=== PATIENT | male | born 1940 | race Caucasian/White ===

== ENCOUNTER 2020-10-09 08:57 | Inpatient (IN) ==
--- NOTE | 2020-09-18 10:20 | PAT Medication Instructions ---
Medication Instructions Date of Service September 18, 2020 Home Medications amlodipine [Norvasc] 5 mg PO Q2D atenolol [Tenormin] 100 mg PO QAM clopidogrel [Plavix] 75 mg PO QAM hydrocodone-acetaminophen 1 tab PO QID PRN insulin glargine U-300 conc [Toujeo SoloStar U-300 Insulin] 50 unit SUBCUT QAM lisinopril-hydrochlorothiazide 1 tab PO QAM metformin 500 mg PO QAM multivitamin 1 cap PO QAM rosuvastatin [Crestor] 40 mg PO QAM tamsulosin [Flomax] 0.4 mg PO HS Continue as directed amlodipine [Norvasc] 5 mg PO Q2D ASK your prescriber and surgeon clopidogrel [Plavix] 75 mg PO QAM DO NOT take the morning of surgery lisinopril-hydrochlorothiazide 1 tab PO QAM metformin 500 mg PO QAM multivitamin 1 cap PO QAM Take morning of surgery With a small sip of water, OTHERWISE NOTHING TO EAT OR DRINK AFTER MIDNIGHT: atenolol [Tenormin] 100 mg PO QAM hydrocodone-acetaminophen 1 tab PO QID PRN (okay to take up to 4 hours prior to surgery if needed) rosuvastatin [Crestor] 40 mg PO QAM Take evening before surgery hydrocodone-acetaminophen 1 tab PO QID PRN (okay to take up to 4 hours prior to surgery if needed) tamsulosin [Flomax] 0.4 mg PO HS Insulin Dependent Diabetic Patients * Test your blood sugar the morning of surgery * If Blood Sugar is GREATER THAN 150, take HALF of your regular dose of: insulin glargine U-300 conc [Toujeo SoloStar U-300 Insulin] take 25 units * If Blood Sugar is LESS THAN 150, DO NOT TAKE ANY: insulin glargine U-300 conc [Toujeo SoloStar U-300 Insulin] Other Notes If you have any questions please call us at [phone] or [phone] or [phone] or [phone]
--- NOTE | 2020-09-18 10:24 | Anesthesiology Consultation ---
Date of Service September 18, 2020 Assessment & Plan (1) Encounter for pre-operative examination: - Awaiting surgeon-ordered PCP clearance + preop UA. - COVID screening: Per assessment on 09/18: Patient vaccinated. Travel screen ne [place], no known COVID-19 positive contacts or current COVID-19 related symptoms. Surgeon arranging preop COVID testing. Awaiting results. - Check BSG AM DOS - Plavix instructions per surgeon/prescriber Chart Review Chart Review: Patient seen in Pre Admission Testing Teaching & Discussion Pre-Anesthesia Teaching/Discussion Notes: Instructed NPO after midnight before surgery,except medications with 15 cc of water. Medication instructions provided according to the PAT guidelines. History Surgery Operation Date: 10/09/20 12:35 Proposed Procedures p Revision; L2=S1 Revision Decompression/Fusion Spinal Cord Monitoring - Yobani De Los Santos DO Height/Weight Height: 5 ft 10 in Weight: 102.512 kg (per verbal, pt unable to stand) Allergies Allergy/AdvReac Type Severity Reaction Status Date / Time cephalexin [From Keflex] Allergy Mild burning in Verified 09/17/20 13:29 hand Medications Home Medications Medication Instructions Recorded Confirmed Last Taken amlodipine [Norvasc] 5 mg PO Q2D 09/17/20 09/17/20 Unknown atenolol [Tenormin] 100 mg PO QAM 09/17/20 09/17/20 Unknown clopidogrel [Plavix] 75 mg PO QAM 09/17/20 09/17/20 Unknown hydrocodone-acetaminophen 1 tab PO QID PRN 09/17/20 09/17/20 Unknown insulin glargine U-300 conc 50 unit SUBCUT QA 09/17/20 09/17/20 Unknown [Toujeo SoloStar U-300 Insulin] lisinopril-hydrochlorothiazide 1 tab PO QAM 09/17/20 09/17/20 Unknown metformin 500 mg PO QAM 09/17/20 09/17/20 Unknown multivitamin 1 cap PO QAM 09/17/20 09/17/20 Unknown rosuvastatin [Crestor] 40 mg PO QAM 09/17/20 09/17/20 Unknown tamsulosin [Flomax] 0.4 mg PO HS 09/17/20 09/17/20 Unknown Past Medical History Medical History BPH (benign prostatic hyperplasia) Chronic back pain Diabetes mellitus, type 2 NIDDM GERD (gastroesophageal reflux disease) Hyperlipidemia Hypertension Obesity Osteoarthritis PAD (peripheral artery disease) PAD/PVD on Plavix Exercise / Class Metabolic Activity IV < 2 Limit ADL/Bedbound (for last few weeks in setting of worsening pain) Past Surgical History Surgical History 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 History of lumbar surgery No hardware per pt Hx of bilateral cataract extraction Hx of colonoscopy Hx of resection of large bowel r/t mass (benign) Past Anesthesia History No Hx of Anesthesia Complications and No Family Hx of Anesthesia Complications History of PONV No Hx of PONV and No Hx of Motion Sickness Social History Smoking Status: Current some day smoker tobacco type: cigars (occasional) Do You Dip or Chew Tobacco: No Hx Alcohol Use: No Hx Substance Use: No substance use type: does not use Review of Systems Patient denies chest pain, shortness of breath, dyspnea on exertion, fever, chills, cough, wheezing, palpitations. Physical Exam Vital Signs VITALS BP 112/60 P 67 TEMP 98.6 SP02 93%RA RESP 16 PHYSICAL Decreased cervical extension range of motion. Full TMJ range of motion. TMD 3.5 finger breaths Mallampati Score 3 Dentition: full dentures upper/lower Lungs: clear throughout to auscultation Cardiac: regular rate and rhythm, no murmurs noted Spine: normal Carotid arteries: negative bruit Extremities: no edema Lab Results Anesthesia Preop Results Results Anesthesia Widget: WBC 6.73 K/uL (4.8-10.8) 09/18/20 Hgb 12.5 g/dL (14.0-18.0) L 09/18/20 Hct 37.0 % (42-52) L 09/18/20 Plt 241 K/uL (130-400) 09/18/20 Na 142 mmol/L (136-145) 09/18/20 K 4.9 mmol/L (3.5-5.1) 09/18/20 Cl 109 mmol/L (98-107) H 09/18/20 CO2 29 mmol/L (21-32) 09/18/20 BUN 33 mg/dl (7-18) H 09/18/20 Creat 1.16 mg/dl (0.6-1.4) 09/18/20 Glucose Level 149 mg/dl (70-99) H 09/18/20 PT 9.5 Seconds (9.0-12.0) 09/18/20 PTT 24.5 Seconds (21.0-31.0) 09/18/20 INR 0.9 (0.9-1.1) 09/18/20 HA1c 7.0 % (4.5-5.6) H 09/18/20 Blood Type A Positive 09/18/20 Antibody Screen NEGATIVE 09/18/20 Testing Electrocardiogram Date: 09/18/20 SB at 59bpm. RBBB. Chest X-Ray Date: 09/18/20 FINDINGS: The heart is mildly enlarged. There is no failure. There is no focal pulmonary consolidation. There are no pleural effusions. Degenerative changes are present within the AC joints. There is evidence for left shoulder calcific tendinopathy. IMPRESSION: No active disease in the chest.
[~2020-10-09 08:57] MED LIST: ACETAMINOPHEN 500 MG TAB PO SCH; CeleBREX 200 MG CAP PO SCH; GABAPENTIN 300 MG CAP PO SCH; LR 15ML/HR IV SCH; ceFAZolin 2000MG 2,000 MG/15 ML SYR IV SCH
[2020-10-09] MEDS ORDERED: LIDOCAINE 2% 2 ML VIAL/AMP(20MG/ML) INFIL ONE (10:23)
[2020-10-09] MEDS ORDERED: PROPOFOL IV EMULSION 10 MG/ML 20 ML VIAL IV ONE (10:23)
[2020-10-09] MEDS ORDERED: fentaNYL citrate 100 MCG/2 ML VIAL ONE (10:23)
[2020-10-09] MEDS ORDERED: ROCURONIUM BROMIDE 10 MG/ML 5 ML VIAL IV ONE (10:23)
[2020-10-09] MEDS ORDERED: HYDROmorphone INJ 2 MG/ML SYR/VIAL IV PRN (10:56)
[2020-10-09] MEDS ORDERED: ePHEDrine sulfate 50 MG/ML AMP IV PRN (10:56)
[2020-10-09] MEDS ORDERED: ONDANSETRON INJ 2 MG/ML 2 ML VIAL IV PRN ×2 (10:56→17:08)
[2020-10-09] MEDS ORDERED: ATROPINE SULFATE 0.1 MG/ML 10ML SYR IV PRN (10:56)
--- NOTE | 2020-10-09 11:23 | History & Physical Bridge Note ---
Date of Service October 09, 2020 History & Physical Bridge Note I have examined the patient, reviewed the History & Physical and in the interval since the performance of the History & Physical I have noted the following changes of clinical significance: no changes noted
--- NOTE | 2020-10-09 11:24 | History & Physical Report ---
Date of Service October 09, 2020 Assessment & Plan (1) Neurogenic claudication due to lumbar spinal stenosis: Plan: L2-S1 revision decompression fusion History of Present Illness Chief Complaint: Back and leg pain Primary Care Provider: Florencio Easton MD This is a 80-year-old male presents with chronic persistent back and leg pain after failing course of nonoperative care is here for surgical invention. Allergies Allergy/AdvReac Type Severity Reaction Status Date / Time cephalexin [From Keflex] Allergy Mild burning in Verified 10/09/20 09:43 hand Home Medications Medication Instructions Recorded Confirmed Type amlodipine 5 mg tablet (Norvasc) 5 mg PO Q2D 09/17/20 10/09/20 History atenolol 100 mg tablet (Tenormin) 100 mg PO QAM 09/17/20 10/09/20 History clopidogrel 75 mg tablet (Plavix) 75 mg PO QAM 09/17/20 10/09/20 History hydrocodone 5 mg-acetaminophen 325 1 tab PO QID PRN 09/17/20 10/09/20 History mg tablet insulin glargine U-300 conc 300 50 unit SUBCUT QAM 09/17/20 10/09/20 History unit/mL (1.5 mL) subcutaneous pen (Toujeo SoloStar U-300 Insulin) lisinopril 20 1 tab PO QAM 09/17/20 10/09/20 History mg-hydrochlorothiazide 12.5 mg tablet metformin 500 mg tablet 500 mg PO QAM 09/17/20 10/09/20 History multivitamin 1 cap PO QAM 09/17/20 10/09/20 History rosuvastatin 40 mg tablet (Crestor) 40 mg PO QAM 09/17/20 10/09/20 History tamsulosin 0.4 mg capsule (Flomax) 0.4 mg PO HS 09/17/20 10/09/20 History Past Med/Surg History Medical History BPH (benign prostatic hyperplasia) Chronic back pain Diabetes mellitus, type 2 NIDDM GERD (gastroesophageal reflux disease) Hyperlipidemia Hypertension Obesity Osteoarthritis PAD (peripheral artery disease) PAD/PVD on Plavix Surgical History 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 History of lumbar surgery No hardware per pt Hx of bilateral cataract extraction Hx of colonoscopy Hx of resection of large bowel r/t mass (benign) Social History Smoking Status: Current some day smoker Second Hand Exposure: No; Do You Dip or Chew Tobacco: No; Tobacco Cessation Education Requested by Patient: No Hx Alcohol Use: No Hx Substance Use: No Preferred Language: Yakut Communication Ability: Effective Stablehand Required: No Beliefs That Will Affect Care: None Current Living Situation: Spouse Other Information That Helps Us Care for You: No Feels Safe at Home: Yes Safety Concerns: Feels Safe At This Time Assistive Devices: Glasses Physical Exam Physical Exam: Patient is alert and oriented Heart regular rhythm Lungs clear to auscultation Results & Data ([facility]) Vital Signs (Past 12 Hours) Vital Signs Temp Pulse Resp BP Pulse Ox 10/09/20 09:36 36.3 C L 49 L 20 134/75 20 L
[2020-10-09] MEDS ORDERED: BUPIVACAINE/EPINEPHRINE 0.5% MPF 1:200,000 30 ML VIAL ONE (12:25)
[2020-10-09] MEDS ORDERED: FLOSEAL HEMOSTATIC MATRIX 10ML TOP ONE (14:58)
--- NOTE | 2020-10-09 15:25 | Operative Report ---
Post Operative Report Pre & Post Diagnosis Operation Date: 10/09/20 10:35 Pre-Op Diagnosis: Neurogenic claudication due to lumbar spinal stenosis Post-Op Diagnosis: Neurogenic claudication due to lumbar spinal stenosis I identified the patient and participated in the time-out.: Yes Procedure Operation Date: 10/09/20 10:35 Actual Procedures #1 revision decompression medial facetectomies and foraminotomies L4-5 L5-S1. #2 posterior spinal fusion L2-3, L3-4, L4-5 L5-S1. #3 placement posterior segmental instrumentation L2-S1. #4 interbody fusion L5-S1. #5 placement peek cage 10 x 26 mm at L5-S1. #6 placement locally harvested morselized autograft in the posterior gutters. #7 placement of infuse collagen sponge, and master graft in the posterior lateral gutters and I factor in the interbody space. Surgeon Yobani De Lso Santos DO Brand Advocate Kevin Tracy Estimated Blood Loss 200 Findings Consistent with Post-Op Diagnosis Specimens None Indications This is a 80-year-old male who presents above-mentioned diagnosis after failing extensive course of nonoperative care is here for the above-mentioned procedure. Description of Procedure Patient was met with identified informed consent obtained. Patient was then taken to the operative suite underwent a patient placed in a prone position the [place] table top Dennis frame. All bony prominences well-padded eyes inspected to ensure no external pressure placed upon up at this point the lumbar spine was prepped and draped in a sterile fashion. Sharp dissection with assistance pericardial form down to and exposing the remaining lamina and transverse processes of L2 L3-L4-L5 and the sacral ala bilaterally. I then performed revision medial facetectomies and foraminotomies L4-5 L5-S1. Pedicle screws were then placed in L2 L3-L4-L5 and S1 levels with assistance of fluoroscopy and the proper sized ralph contoured and placed. By way the transforaminal portion left complete discectomy of L5-S1 was performed endplates curetted to subcortical any bone and a 10 x 26 mm peek cage filled I factor tapped in position. Rods were locked in final position. The transverse processes of L2 L3-L4-L5 and the sacral ala burred to subcortically bone. Infuse collagen sponge master graft and local autograft was placed in the posterior gutters. 15 round MEHDI drain inserted. Incision then closed with 1 Vicryl to fascia 2-0 Vicryl subcutaneously and 4 Monocryl for final skin closure. Steri-Strip sterile dressing was placed. Patient waken taken PACU stable condition. Please note spinal cord monitoring was utilized at the procedure no changes noted. Lastly Kevin Tracy was present at the entire surgery while the patient positioning complex portions of the surgery and vascular closure. I attest to the content of the Intraoperative Record and any orders documented therein. Any exceptions are noted below.
--- NOTE | 2020-10-09 16:03 | Fluoroscopy Report ---
FL lumbar spine 2-3V CLINICAL HISTORY: L2-S1 D/F/I COMPARISON STUDY: None FLUOROSCOPY TIME: 43 seconds. NUMBER OF FLUOROSCOPIC IMAGES: 3 FINDINGS: Few fluoroscopic intraoperative images were presented for review and shows lumbar levoscoliosis with multilevel intervertebral disc space narrowing and osteophytes as well as multiple metallic screws an d connecting plates. Also disc spacer is seen. IMPRESSION: As above. ACT 112: Negative or not required by law. The above report was generated using voice recognition software. It may contain grammatical, syntax o r spelling errors. Electronically signed by: Flori Martinez DO 10/09/2020 4:02 PM
[2020-10-09] MEDS ORDERED: PHENYLEPHRINE HCL 10 MG/ML VIAL ONE (16:05)
[2020-10-09] MEDS ORDERED: NEOSTIGMINE METHYLSULFATE 1 MG/ML 10ML VIAL ONE (16:05)
[2020-10-09] MEDS ORDERED: ONDANSETRON INJ 2 MG/ML 2 ML VIAL ONE (16:05)
[2020-10-09] MEDS ORDERED: DEXAMETHASONE SOD INJ 4 MG/ML VIAL ONE (16:05)
[2020-10-09] MEDS ORDERED: ePHEDrine sulfate 50 MG/ML SYR ONE (16:05)
[2020-10-09] MEDS ORDERED: GLYCOPYRROLATE 0.2 MG/ML VIAL ONE (16:05)
[2020-10-09] MEDS: fentaNYL citrate 100 MCG/2 ML VIAL IV PRN ×2 (16:10→16:16)
[2020-10-09] MEDS ORDERED: ACETAMINOPHEN 1,000 MG/100 ML VIAL IV PRN (17:08)
[2020-10-09] MEDS ORDERED: hydrOXYzine HCl 25 MG TAB PO PRN (17:08)
[2020-10-09] MEDS ORDERED: LORazepam 0.5 MG/1 ML VIAL IV PRN (17:08)
[2020-10-09] MEDS ORDERED: SOD PHOSPHATE/SOD BIPHOSPHATE ENEMA 132 ML BTL PR PRN (17:08)
[2020-10-09] MEDS ORDERED: HYDROmorphone INJ 1 MG/ML SYRINGE IV PRN (17:08)
[2020-10-09] MEDS ORDERED: ACETAMINOPHEN 500 MG TAB PO PRN (17:08)
[2020-10-09] MEDS ORDERED: ONDANSETRON 4 MG OD TAB PO PRN (17:08)
[2020-10-09] MEDS ORDERED: METOCLOPRAMIDE HCL INJ 5 MG/ML 2 ML VIAL IV PRN (17:08)
[2020-10-09] MEDS ORDERED: DO NOT ADMINISTER FLU VACCINE PRN (17:08)
[2020-10-09] MEDS ORDERED: traMADol HCL 50 MG TABLET PO PRN (17:08)
[2020-10-09] MEDS ORDERED: PROMETHAZINE HCL 12.5 MG in SODIUM CHLORIDE 0.9% 50 ML IV PRN (17:08)
[2020-10-09] MEDS ORDERED: diphenhydrAMINE Capsule 25 MG CAP PO PRN (17:08)
[2020-10-09] MEDS ORDERED: FAMOTIDINE 20 MG TAB PO PRN (17:08)
[2020-10-09] MEDS ORDERED: NALOXONE HCL 0.4 MG/1 ML VIAL/CARP IV PRN (17:08)
[2020-10-09] MEDS ORDERED: HYDROmorphone INJ 0.5 MG/0.5 ML SYR IV PRN (17:08)
[2020-10-09] MEDS ORDERED: MAGNESIUM HYDROXIDE SUSP 30 ML UDC PO PRN (17:08)
[2020-10-09] MEDS ORDERED: LORazepam 0.5 MG TAB PO PRN (17:08)
[2020-10-09] MEDS ORDERED: DO NOT ADMINISTER PNEUMOCOCCAL VACCINE PRN (17:08)
[2020-10-09] MEDS ORDERED: ALUMINUM/MAGNESIUM SUSP 30 ML UDC PO PRN (17:08)
[2020-10-09] MEDS: amLODIPine BESYLATE 5 MG TAB PO SCH (18:26)
[2020-10-09] MEDS: SODIUM CHLORIDE 0.9% 1000ML 1,000 ML IV SCH (18:28)
[2020-10-09] MEDS ORDERED: traZODone HCL 50 MG TAB PO ONE (20:02)
[2020-10-09] MEDS ORDERED: GLUCOSE 10 TABS/TUBE PO PRN (20:15)
[2020-10-09] MEDS ORDERED: DEXTROSE 50% 50 ML SYRINGE IV PRN (20:15)
[2020-10-09] MEDS ORDERED: GLUCOSE 40% GEL 15 GM TUBE PO PRN (20:15)
[2020-10-09] MEDS ORDERED: GLUCAGON FOR INJ 1 MG VIAL IM PRN (20:15)
[2020-10-09] MEDS ORDERED: CARBOHYDRATES FOR HYPOGLYCEMIA PO PRN (20:15)
[2020-10-09] MEDS: oxyCODONE HCL IR 5 MG TAB (IMMEDIATE RELEASE) PO PRN (20:43)
[2020-10-09] MEDS: DOCUSATE SODIUM/SENNA 50/8.6MG TAB PO SCH (20:47)
[2020-10-09] MEDS ORDERED: INSULIN GLARGINE SOLOSTAR 100 UNITS/ML 3 ML PEN SC SCH ×2 (21:00)
[2020-10-09] MEDS: INSULIN ASPART 100 UNITS/ML 3 ML PEN SC SCH (21:00)
--- NOTE | 2020-10-09 21:28 | Consultation Report ---
DATE OF CONSULTATION: 10/09/2020 CHIEF COMPLAINT: Status post back surgery. HISTORY OF PRESENT ILLNESS: This is a 80-year-old male with a past medical history significant for diabetes, hypertension, hyperlipidemia, obesity, osteoarthritis, peripheral artery disease, chronic back pain, BPH, status post back surgery, tolerated the procedure okay. Complains of mild back pain.Says he is very hard of hearing and he says he is somewhat groggy from his anesthesia. Otherwise, he says he is doing okay. Denies any chest pain, no shortness of breath, no cough, no fevers, no headache, no nausea, resting comfortably. Denies any complaints. He says he is doing fine. ALLERGIES: KEFLEX. PAST MEDICAL HISTORY: As mentioned above. PAST SURGICAL HISTORY: As per records, amputation of the left foot/toe, history of lumbar surgery, history of bilateral cataract extractions, history of colonoscopy, history of resection of large bowel. MEDICATIONS: The patient is on amlodipine 5 mg p.o. daily, atenolol 100 mg p.o. a.m., Plavix 75 mg p.o. a.m., hydrocodone/acetaminophen 1 tablet p.o. q.i.d. p.r.n., insulin glargine 50 units subcutaneous a.m., lisinopril/hydrochlorothiazide 20/12.5 mg p.o. daily, metformin 500 mg p.o. a.m., multivitamin 1 tablet p.o. a.m., Crestor 40 mg p.o. a.m., Flomax 0.4 mg p.o. at bedtime. FAMILY HISTORY: Noncontributory. SOCIAL HISTORY: He says he smokes cigars once in a while. No alcohol use. REVIEW OF SYSTEMS: As per HPI. Rest of the review of systems is negative. PHYSICAL EXAMINATION: GENERAL: The patient is obese, not in acute distress. VITAL SIGNS: Temperature 36.4, pulse 78, respirations 16, blood pressure 119/74, oxygen 99% on 2 liters. HEENT: Atraumatic. NECK: No JVD, no neck masses. CARDIOVASCULAR: S1 and S2 heard. Regular rate and rhythm. No murmur, no gallop. RESPIRATORY SYSTEM: Normal AP diameter. No accessory muscle use. No wheezing, no crackles. ABDOMEN: Soft, bowel sounds present, nontender, nondistended. CENTRAL NERVOUS SYSTEM: Alert and awake. Speech is clear. No facial droop. Obeys simple commands. Moves extremities. EXTREMITIES: No edema, no erythema seen. MUSCULOSKELETAL: Status post back surgery. Dressing is intact. LABORATORY DATA: No labs. ASSESSMENT AND PLAN: This is a 80-year-old male, presents with status post back surgery. 1. Status post back surgery. Management as per orthopedics. 2. Diabetes. Will reduce his home insulin today and may resume full dose from tomorrow.Hold his metformin. Place on insulin sliding scale. Follow the blood sugars. 3. History of hypertension. Continue his atenolol, amlodipine, and lisinopril/hydrochlorothiazide. We will monitor the blood pressure. 4. History of peripheral vascular disease, on Plavix and statin. 5. History of hyperlipidemia, on statin. 6. History of benign prostatic hyperplasia, on Flomax. 7. Deep venous thrombosis prophylaxis and disposition as per orthopedics. Job ID: [id number] [facility]
[2020-10-09] MEDS: TAMSULOSIN HCL 0.4 MG CAP PO SCH (21:46)
[2020-10-09] MEDS: CLINDAMYCIN 600 MG in DEXTROSE 5% 50 ML IV SCH (21:50)
[2020-10-10] MEDS ORDERED: MICONAZOLE NITRATE POWDER 43 GM EXT PRN (00:29)
[2020-10-10] MEDS: oxyCODONE HCL IR 5 MG TAB (IMMEDIATE RELEASE) PO PRN ×3 (03:21→19:20)
[2020-10-10] MEDS: POLYETHYLENE (MIRALAX) 17 GM PACK PO SCH ×4 (03:30→22:02)
[2020-10-10] MEDS: SODIUM CHLORIDE 0.9% 1000ML 1,000 ML IV SCH ×2 (04:58→11:49)
[2020-10-10] MEDS: CLINDAMYCIN 600 MG in DEXTROSE 5% 50 ML IV SCH (06:10)
[2020-10-10 06:35] LABS: Hematocrit (blood only) 30.4 % (42-52); Hemoglobin 10.2 g/dL (14.0-18.0); Immature Granulocytes # (auto) 0.02 K/uL (0.00-0.02); Immature Granulocytes % (auto) 0.2 %; Lymphocytes # (auto) 0.63 K/uL (1.2-3.4); Mean Corpuscular Hemoglobin 29.7 pg (25-34); Mean Corpuscular Hgb Conc 33.6 g/dL (32-36); Mean Corpuscular Volume 88.6 fL (80-100); Mean Platelet Volume 9.7 fL (7.4-10.4); Monocytes # (auto) 0.82 K/uL (0.11-0.59); Monocytes % (auto) 7.8 %; Neutrophils # (auto) 9.08 K/uL (1.4-6.5); Platelet Count 183 K/uL (130-400); RDW Coefficient of Variation 12.9 % (11.5-14.5); RDW Standard Deviation 41.6 fL (36.4-46.3); Red Blood Count 3.43 M/uL (4.7-6.1); White Blood Count 10.55 K/uL (4.8-10.8)
[2020-10-10 07:02] LABS: BUN Creatinine Ratio 23.8 (10-20); Calcium 8.6 mg/dl (8.5-10.1); Creatinine Clr Calc Pharmacy 71.9 ml/min; Est GFR (African American) 85.7 ml/min; Est GFR (Non-African American) 73.9 ml/min; Potassium 4.6 mmol/L (3.5-5.1)
[2020-10-10] MEDS: ATENOLOL 50 MG TABLET PO SCH (09:15)
[2020-10-10] MEDS: LISINOPRIL/HCTZ 20/12.5MG 1 TAB TAB PO SCH (09:15)
[2020-10-10] MEDS: NYSTATIN POWDER 15GM BTL EXT SCH ×2 (09:16→20:44)
[2020-10-10] MEDS: ROSUVASTATIN CALCIUM 20 MG TAB PO SCH (09:16)
[2020-10-10] MEDS: INSULIN ASPART 100 UNITS/ML 3 ML PEN SC SCH ×4 (09:17→20:43)
[2020-10-10] MEDS: MULTIVITAMIN TAB PO SCH (09:26)
--- NOTE | 2020-10-10 10:24 | Orthopedic Progress Note ---
Date of Service October 10, 2020 Assessment & Plan (1) Neurogenic claudication due to lumbar spinal stenosis: Plan: This time we will continue physical therapy monitor his MEHDI output hopefully discharge home in the next few days. Admission and Anticipated Discharge Date Admission Date: October 09, 2020 Subjective Back pain is controlled leg symptoms improved Physical Exam Physical Exam: Patient is in the chair at the bedside. Is good strength testing. Appears comfortable. Results & Data ([facility]) Vital Signs (Past 12 Hours) Vital Signs Temp Pulse Resp BP Pulse Ox 10/10/20 07:35 36.8 C 83 18 118/72 97 10/10/20 04:03 36.6 C 86 18 122/71 93 10/09/20 23:51 36.5 C 85 18 106/69 96
--- NOTE | 2020-10-10 13:37 | Hospitalist Progress Note ---
Date of Service October 10, 2020 Assessment & Plan (1) Neurogenic claudication due to lumbar spinal stenosis: (2) Post-operative state: Plan: s/p back surgery by Dr. De Los Santos POD #1 -pain/wound management per Ortho -VTE prophylaxis per Ortho, encourage early ambulation -incentive spirometry encouraged -CBC, BMP in am -PT/OT and activity restrictions per Ortho (3) Hypertension: Plan: at goal, cont norvasc, atenolol. prinzide per home regimen. (4) PAD (peripheral artery disease): Plan: Plavix on hold, restart when cleared by ortho. (5) Diabetes mellitus, type 2: Plan: cont basal/ bolus insulin while hospitalized. Currently at goal. (6) BPH (benign prostatic hyperplasia): Plan: cont Flomax per home regimen. (7) DVT prophylaxis: Plan: SCD/ ambulation Full Dispo-to home in next 1-2 days when cleared by Ortho Thank you for this consultation. Sw[facility] and Anticipated Discharge Date Admission Date: October 09, 2020 Subjective 80 yo M s/p lumbar surgery reports pain is well managed with meds tolerating PO denies SOB, CP or other issues. Review of Systems Review of Systems: All systems were reviewed and negative except as indicated in HPI above. Physical Exam Physical Exam: CONSTITUTIONAL: WNWD, vitals as above, generally well- appearing EYES: normal conjunctivae, no scleral icterus ENT: external ear and nose normal, MMM RESPIRATORY: clear to auscultation bilaterally, no crackles, rales or wheezes, normal respiratory effort CARDIOVASCULAR: regular rate and rhythm, S1 and 2 heard without murmurs, gallops or rubs, no JVD, no peripheral edema GASTROINTESTINAL: soft, NTND, no guarding MUSCULOSKELETAL: strength 5/5 throughout, head is normocephalic and atraumatic, neck supple, normal palpation of chest wall without tenderness SKIN: warm and dry NEUROLOGIC: No facial palsy, no dysarthria. CN 2-12 grossly intact, no sensory deficit, normal cognition, normal speech, no tremor PSYCHIATRIC: alert cooperative and oriented to person, place and time. Results & Data Results & Data ([facility]) Vital Signs (Past 12 Hours) Vital Signs Temp Pulse Resp BP Pulse Ox 10/10/20 07:35 36.8 C 83 18 118/72 97 07/24/21 04:03 36.6 C 86 18 122/71 93 Laboratory Results Short CBC 10/10/20 Range/Units 06:10 WBC 10.55 (4.8-10.8) K/uL Hgb 10.2 L (14.0-18.0) g/dL Hct 30.4 L (42-52) % Plt Count 183 (130-400) K/uL BMP 10/10/20 06:10 Sodium 139 Potassium 4.6 Chloride 107 Carbon Dioxide 27 BUN 23 H Creatinine 0.97 Glucose 166 H Calcium 8.6 Medications Administered Current Inpatient Medications Acetaminophen (Acetaminophen 500 Mg Tab) 1,000 mg PO Q8H PRN PRN Reason: MILD Pain Scale 1,2,3 & Pre PT Stop: 11/08/20 17:07 Al Hydrox/Mg Hydrox/Simethicone (Aluminum/Magnesium Susp 30 Ml Udc) 30 ml PO Q6H PRN PRN Reason: Dyspepsia Stop: 11/08/20 17:07 Amlodipine Besylate (Amlodipine Besylate 5 Mg Tab) 5 mg PO Q2D@0900 [facility] Stop: 11/08/20 17:07 Last Admin: 10/09/20 18:26 Dose: 5 mg Documented by: Atenolol (Atenolol 50 Mg Tablet) 100 mg PO QAM [facility] Stop: 11/09/20 08:59 Last Admin: 10/10/20 09:15 Dose: 100 mg Documented by: Bisacodyl (Bisacodyl 10 Mg Supp) 10 mg [place] DAILY PRN PRN Reason: Constipation Stop: 11/10/20 07:59 Dextrose (Dextrose 50% 50 Ml Syringe) 25 - 50 ml IV UD PRN; Protocol PRN Reason: Hypoglycemia Protocol Stop: 11/08/20 20:14 Diphenhydramine HCl (Diphenhydramine Capsule 25 Mg Cap) 25 mg PO Q6H PRN PRN Reason: Allergic Rhinitis/Insomnia Stop: 11/08/20 17:07 Famotidine (Famotidine 20 Mg Tab) 20 mg PO Q12H PRN PRN Reason: Dyspepsia Stop: 11/08/20 17:07 Glucagon (Glucagon For Inj 1 Mg Vial) 1 mg IM UD PRN; Protocol PRN Reason: Hypoglycemia Protocol Stop: 11/08/20 20:14 Glucose (Glucose 40% Gel 15 Gm Tube) 15 - 30 gm PO UD PRN; Protocol PRN Reason: Hypoglycemia Protocol Stop: 11/08/20 20:14 Glucose (Glucose 10 Tabs/Tube) 4 - 8 tabs PO UD PRN; Protocol PRN Reason: Hypoglycemia Protocol Stop: 11/08/20 20:14 Lisinopril/HCTZ (Lisinopril/Hctz 20/12.5mg 1 Tab Tab) 1 tab PO QAM [facility] Stop: 11/09/20 08:59 Last Admin: 10/10/20 09:15 Dose: 1 tab Documented by: Hydromorphone HCl (Hydromorphone Inj 0.5 Mg/0.5 Ml Syr) 0.5 mg IV Q3H PRN PRN Reason: MOD pain (scale 4-6) & Pre PT Stop: 10/23/20 17:07 Hydromorphone HCl (Hydromorphone Inj 1 Mg/Ml Syringe) 1 mg IV Q3H PRN PRN Reason: severe pain (scale 7-10) Stop: 10/23/20 17:07 Hydroxyzine HCl (Hydroxyzine Hcl 25 Mg Tab) 25 mg PO Q8H PRN PRN Reason: Anxiety Stop: 11/08/20 17:07 Sodium Chloride (Nss 1000ml) 1,000 mls @ 100 mls/hr IV .Q10H [facility] Stop: 11/08/20 17:59 Last Admin: 10/10/20 11:49 Dose: Not Given Documented by: Promethazine HCl 12.5 mg/ (Sodium Chloride) 50.5 mls @ 202 mls/hr IV Q6H PRN PRN Reason: Nausea &/or Vomiting Stop: 11/08/20 17:07 Acetaminophen (Ofirmev) 1,000 mg in 100 mls @ 400 mls/hr IV Q8H PRN PRN Reason: Pain Rating 1-3 & Pre PT Stop: 10/12/20 17:07 Lorazepam (Ativan) 0.5 mg in 1 mls @ 1 mls/min IV Q8H PRN PRN Reason: Sedation/Anxiety Stop: 11/08/20 17:07 Dexamethasone 8 mg/ Syringe 2 mls @ 1 mls/min IV DAILY [facility] Stop: 11/10/20 08:59 Influenza Virus Vaccine Quadrival (Do Not Administer Flu Vaccine) 1 ea N/A PRN PRN PRN Reason: Notification Stop: 11/08/20 17:07 Insulin Aspart (Insulin Aspart 100 Units/Ml 3 Ml Pen) 0 units SC ACHS [facility] Stop: 11/08/20 20:59 Last Admin: 10/10/20 13:03 Dose: 3 units Documented by: Insulin Glargine (Insulin Glargine Solostar 100 Units/Ml 3 Ml Pen) 40 units SC HS [facility]; Protocol Stop: 11/09/20 20:59 Lorazepam (Lorazepam 0.5 Mg Tab) 0.5 mg PO Q8H PRN PRN Reason: sedation/anxiety Stop: 11/08/20 17:07 Magnesium Hydroxide (Magnesium Hydroxide Susp 30 Ml Udc) 30 ml PO Q24H PRN PRN Reason: Constipation Stop: 11/08/20 17:07 Metoclopramide HCl (Metoclopramide Hcl Inj 5 Mg/Ml 2 Ml Vial) 10 mg IV Q6H PRN PRN Reason: Nausea &/or Vomiting Stop: 11/08/20 17:07 Miconazole Nitrate (Miconazole Nitrate Powder 43 Gm) 1 appln EXT PRN PRN PRN Reason: Affected Skin Folds Stop: 11/09/20 00:28 Miscellaneous (Carbohydrates For Hypoglycemia ) 15 - 30 gm PO UD PRN PRN Reason: Hypoglycemia Treatment Stop: 11/08/20 20:14 Multivitamins (Multivitamin Tab) 1 tab PO QAM [facility] Stop: 11/09/20 08:59 Last Admin: 10/10/20 09:26 Dose: 1 tab Documented by: Naloxone HCl (Naloxone Hcl 0.4 Mg/1 Ml Vial/Carp) 0.1 mg IV Q5M PRN PRN Reason: Oversedation/respiratory dep Stop: 11/08/20 17:07 Nystatin (Nystatin Powder 15gm Btl) 1 appln EXT BID [facility] Stop: 11/09/20 08:59 Last Admin: 10/10/20 09:16 Dose: 1 appln Documented by: Ondansetron HCl (Ondansetron Inj 2 Mg/Ml 2 Ml Vial) 4 mg IV Q6H PRN PRN Reason: Nausea &/or Vomiting Stop: 11/08/20 17:07 Ondansetron HCl (Ondansetron 4 Mg Od Tab) 4 mg PO Q6H PRN PRN Reason: Nausea Stop: 11/08/20 17:07 Oxycodone HCl (Oxycodone Hcl Ir 5 Mg Tab (Immediate Release)) 5 - 10 mg PO Q4H PRN PRN Reason: Pain & Pre PT Stop: 10/23/20 17:07 Last Admin: 10/10/20 09:25 Dose: 10 mg Documented by: Pneumococcal Polyvalent Vaccine (Do Not Administer Pneumococcal Vaccine) 1 ea N/A PRN PRN PRN Reason: Notification Stop: 11/08/20 17:07 Polyethylene Glycol (Polyethylene (Miralax) 17 Gm Pack) 17 gm PO Q6 [facility] Stop: 11/09/20 05:59 Last Admin: 10/10/20 12:02 Dose: 17 gm Documented by: Rosuvastatin Calcium (Rosuvastatin Calcium 20 Mg Tab) 40 mg PO QAM [facility] Stop: 11/09/20 08:59 Last Admin: 10/10/20 09:16 Dose: 40 mg Documented by: Senna/Docusate Sodium (Docusate Sodium/Senna 50/8.6mg Tab) 2 tab PO HS [facility] Stop: 11/08/20 20:59 Last Admin: 10/09/20 20:47 Dose: Not Given Documented by: Sodium Biphosphate/Sodium Phosphate (Sod Phosphate/Sod Biphosphate Enema 132 Ml Btl) 132 ml MD ONE PRN PRN Reason: Constipation Stop: 11/08/20 17:07 Tamsulosin HCl (Tamsulosin Hcl 0.4 Mg Cap) 0.4 mg PO HS [facility] Stop: 11/08/20 20:59 Last Admin: 10/09/20 21:46 Dose: 0.4 mg Documented by: Tramadol HCl (Tramadol Hcl 50 Mg Tablet) 50 - 100 mg PO Q4H PRN PRN Reason: Moderate-Severe pain & Pre PT Stop: 11/08/20 17:07
[2020-10-10] MEDS: TAMSULOSIN HCL 0.4 MG CAP PO SCH (19:20)
[2020-10-10] MEDS: DOCUSATE SODIUM/SENNA 50/8.6MG TAB PO SCH (20:43)
[2020-10-10] MEDS ORDERED: INSULIN GLARGINE SOLOSTAR 100 UNITS/ML 3 ML PEN SC SCH ×3 (21:00)
[2020-10-10] MEDS: traZODone HCL 50 MG TAB PO SCH (21:22)
[2020-10-11] MEDS: POLYETHYLENE (MIRALAX) 17 GM PACK PO SCH ×4 (05:47→23:51)
[2020-10-11] MEDS: oxyCODONE HCL IR 5 MG TAB (IMMEDIATE RELEASE) PO PRN ×2 (05:58→13:43)
[2020-10-11] MEDS ORDERED: bisacodyL 10 MG SUPP PR PRN (08:00)
[2020-10-11] MEDS: INSULIN ASPART 100 UNITS/ML 3 ML PEN SC SCH ×4 (09:10→21:12)
[2020-10-11] MEDS: MULTIVITAMIN TAB PO SCH (09:12)
[2020-10-11] MEDS: LISINOPRIL/HCTZ 20/12.5MG 1 TAB TAB PO SCH (09:12)
[2020-10-11] MEDS: ROSUVASTATIN CALCIUM 20 MG TAB PO SCH (09:12)
[2020-10-11] MEDS: dexAMETHasone 8 MG in SYRINGE 0 ML IV SCH (09:15)
[2020-10-11] MEDS: NYSTATIN POWDER 15GM BTL EXT SCH ×2 (09:15→21:10)
[2020-10-11] MEDS: ATENOLOL 50 MG TABLET PO SCH (09:15)
[2020-10-11] MEDS: amLODIPine BESYLATE 5 MG TAB PO SCH (09:28)
--- NOTE | 2020-10-11 10:10 | Orthopedic Progress Note ---
Date of Service October 11, 2020 Assessment & Plan (1) Neurogenic claudication due to lumbar spinal stenosis: Plan: This time we will obtain x-rays left knee. Pending these results may consider an MRI. We also plan to have him go to rehab. Admission and Anticipated Discharge Date Admission Date: October 09, 2020 Subjective Patient's back pain is controlled. Complaining mostly of left knee pain. This was worse after his ambulation yesterday. Physical Exam Physical Exam: Patient is in the chair at the bedside. He has good strength testing lower extremities. I do not appreciate any significant swelling to left knee. Is nontender to palpation. Results & Data ([facility]) Vital Signs (Past 12 Hours) Vital Signs Temp Pulse Pulse Resp BP Pulse Ox 10/11/20 07:30 37 C 77 18 90/51 L 96 10/10/20 22:16 37.2 C 72 18 101/65 98
--- NOTE | 2020-10-11 11:06 | Hospitalist Progress Note ---
Date of Service October 11, 2020 Assessment & Plan (1) Neurogenic claudication due to lumbar spinal stenosis: (2) Post-operative state: Plan: s/p back surgery by Dr. De Los Santos POD #2 -pain/wound management per Ortho -VTE prophylaxis per Ortho, encourage early ambulation -incentive spirometry encouraged -CBC, BMP in am -PT/OT and activity restrictions per Ortho -noted daily dexamethasone. (3) Hypertension: Plan: BP low this morning-hold norvasc, atenolol. prinzide. Cont monitoring BP q4hrs as ordered. (4) PAD (peripheral artery disease): Plan: Plavix on hold, restart when cleared by ortho. (5) Diabetes mellitus, type 2: Plan: cont basal/ bolus insulin while hospitalized. Currently at goal. Noted the addition of daily dexamethasone. will intensify coverage to stay ahead of steroid-induced hyperglycemic effect. (6) BPH (benign prostatic hyperplasia): Plan: cont Flomax per home regimen. (7) DVT prophylaxis: Plan: SCD/ambulation Full Dispo-likely to rehab pending continued recovery. Thank you for this consultation. Swati Newby DO [facility] Hospitalist Admission and Anticipated Discharge Date Admission Date: October 09, 2020 Subjective 80 yo M s/p lumbar surgery reports pain is very uncontrolled at this time, also has left knee pain which was present prior to admission. tolerating PO denies SOB, CP or other issues. BP low this morning, holding anti-hypertensives gael with ongoing narcotics. Review of Systems Review of Systems: All systems were reviewed and negative except as indicated in HPI above. Physical Exam Physical Exam: CONSTITUTIONAL: WNWD, vitals as above, sitting in the bedside chair in moderate distress. EYES: normal conjunctivae, no scleral icterus ENT: external ear and nose normal, MMM RESPIRATORY: clear to auscultation bilaterally, no crackles, rales or wheezes, normal respiratory effort CARDIOVASCULAR: regular rate and rhythm, S1 and 2 heard without murmurs, gallops or rubs, no JVD, no peripheral edema GASTROINTESTINAL: soft, NTND, no guarding MUSCULOSKELETAL: strength 5/5 throughout, head is normocephalic and atraumatic, neck supple, normal palpation of chest wall without tenderness SKIN: warm and dry NEUROLOGIC: No facial palsy, no dysarthria. CN 2-12 grossly intact, no sensory deficit, normal cognition, normal speech, no tremor PSYCHIATRIC: alert cooperative and oriented to person, place and time. Results & Data Results & Data ([facility]) Vital Signs (Past 12 Hours) Vital Signs Temp Pulse Resp BP Pulse Ox 10/11/20 07:30 37 C 77 18 90/51 L 96 Medications Administered Current Inpatient Medications Acetaminophen (Acetaminophen 500 Mg Tab) 1,000 mg PO Q8H PRN PRN Reason: MILD Pain Scale 1,2,3 & Pre PT Stop: 11/08/20 17:07 Al Hydrox/Mg Hydrox/Simethicone (Aluminum/Magnesium Susp 30 Ml Udc) 30 ml PO Q6H PRN PRN Reason: Dyspepsia Stop: 11/08/20 17:07 Last Admin: 10/10/20 15:58 Dose: 30 ml Documented by: Amlodipine Besylate (Amlodipine Besylate 5 Mg Tab) 5 mg PO Q2D@0900 [facility] Stop: 11/08/20 17:07 Last Admin: 10/11/20 09:28 Dose: Not Given Documented by: Atenolol (Atenolol 50 Mg Tablet) 100 mg PO QAM [facility] Stop: 11/09/20 08:59 Last Admin: 10/11/20 09:15 Dose: Not Given Documented by: Bisacodyl (Bisacodyl 10 Mg Supp) 10 mg [place] DAILY PRN PRN Reason: Constipation Stop: 11/10/20 07:59 Dextrose (Dextrose 50% 50 Ml Syringe) 25 - 50 ml IV UD PRN; Protocol PRN Reason: Hypoglycemia Protocol Stop: 11/08/20 20:14 Diphenhydramine HCl (Diphenhydramine Capsule 25 Mg Cap) 25 mg PO Q6H PRN PRN Reason: Allergic Rhinitis/Insomnia Stop: 11/08/20 17:07 Last Admin: 10/10/20 21:22 Dose: 25 mg Documented by: Famotidine (Famotidine 20 Mg Tab) 20 mg PO Q12H PRN PRN Reason: Dyspepsia Stop: 11/08/20 17:07 Last Admin: 10/10/20 16:39 Dose: 20 mg Documented by: Glucagon (Glucagon For Inj 1 Mg Vial) 1 mg IM UD PRN; Protocol PRN Reason: Hypoglycemia Protocol Stop: 11/08/20 20:14 Glucose (Glucose 40% Gel 15 Gm Tube) 15 - 30 gm PO UD PRN; Protocol PRN Reason: Hypoglycemia Protocol Stop: 11/08/20 20:14 Glucose (Glucose 10 Tabs/Tube) 4 - 8 tabs PO UD PRN; Protocol PRN Reason: Hypoglycemia Protocol Stop: 11/08/20 20:14 Lisinopril/HCTZ (Lisinopril/Hctz 20/12.5mg 1 Tab Tab) 1 tab PO QAM [facility] Stop: 11/09/20 08:59 Last Admin: 10/11/20 09:12 Dose: 1 tab Documented by: Hydromorphone HCl (Hydromorphone Inj 0.5 Mg/0.5 Ml Syr) 0.5 mg IV Q3H PRN PRN Reason: MOD pain (scale 4-6) & Pre PT Stop: 10/23/20 17:07 Hydromorphone HCl (Hydromorphone Inj 1 Mg/Ml Syringe) 1 mg IV Q3H PRN PRN Reason: severe pain (scale 7-10) Stop: 10/23/20 17:07 Hydroxyzine HCl (Hydroxyzine Hcl 25 Mg Tab) 25 mg PO Q8H PRN PRN Reason: Anxiety Stop: 11/08/20 17:07 Promethazine HCl 12.5 mg/ (Sodium Chloride) 50.5 mls @ 202 mls/hr IV Q6H PRN PRN Reason: Nausea &/or Vomiting Stop: 11/08/20 17:07 Acetaminophen (Ofirmev) 1,000 mg in 100 mls @ 400 mls/hr IV Q8H PRN PRN Reason: Pain Rating 1-3 & Pre PT Stop: 10/12/20 17:07 Lorazepam (Ativan) 0.5 mg in 1 mls @ 1 mls/min IV Q8H PRN PRN Reason: Sedation/Anxiety Stop: 11/08/20 17:07 Dexamethasone 8 mg/ Syringe 2 mls @ 1 mls/min IV DAILY [facility] Stop: 11/10/20 08:59 Last Admin: 10/11/20 09:15 Dose: 1 mls/min Documented by: Influenza Virus Vaccine Quadrival (Do Not Administer Flu Vaccine) 1 ea N/A PRN PRN PRN Reason: Notification Stop: 11/08/20 17:07 Insulin Aspart (Insulin Aspart 100 Units/Ml 3 Ml Pen) 0 units SC ACHS [facility] Stop: 11/08/20 20:59 Last Admin: 10/11/20 09:10 Dose: 3 units Documented by: Insulin Glargine (Insulin Glargine Solostar 100 Units/Ml 3 Ml Pen) 40 units SC HS [facility]; Protocol Stop: 11/09/20 20:59 Last Admin: 10/10/20 20:44 Dose: 40 units Documented by: Lorazepam (Lorazepam 0.5 Mg Tab) 0.5 mg PO Q8H PRN PRN Reason: sedation/anxiety Stop: 11/08/20 17:07 Magnesium Hydroxide (Magnesium Hydroxide Susp 30 Ml Udc) 30 ml PO Q24H PRN PRN Reason: Constipation Stop: 11/08/20 17:07 Metoclopramide HCl (Metoclopramide Hcl Inj 5 Mg/Ml 2 Ml Vial) 10 mg IV Q6H PRN PRN Reason: Nausea &/or Vomiting Stop: 11/08/20 17:07 Miconazole Nitrate (Miconazole Nitrate Powder 43 Gm) 1 appln EXT PRN PRN PRN Reason: Affected Skin Folds Stop: 11/09/20 00:28 Miscellaneous (Carbohydrates For Hypoglycemia ) 15 - 30 gm PO UD PRN PRN Reason: Hypoglycemia Treatment Stop: 11/08/20 20:14 Multivitamins (Multivitamin Tab) 1 tab PO QAM [facility] Stop: 11/09/20 08:59 Last Admin: 10/11/20 09:12 Dose: 1 tab Documented by: Naloxone HCl (Naloxone Hcl 0.4 Mg/1 Ml Vial/Carp) 0.1 mg IV Q5M PRN PRN Reason: Oversedation/respiratory dep Stop: 11/08/20 17:07 Nystatin (Nystatin Powder 15gm Btl) 1 appln EXT BID [facility] Stop: 11/09/20 08:59 Last Admin: 10/11/20 09:15 Dose: 1 appln Documented by: Ondansetron HCl (Ondansetron Inj 2 Mg/Ml 2 Ml Vial) 4 mg IV Q6H PRN PRN Reason: Nausea &/or Vomiting Stop: 11/08/20 17:07 Ondansetron HCl (Ondansetron 4 Mg Od Tab) 4 mg PO Q6H PRN PRN Reason: Nausea Stop: 11/08/20 17:07 Oxycodone HCl (Oxycodone Hcl Ir 5 Mg Tab (Immediate Release)) 5 - 10 mg PO Q4H PRN PRN Reason: Pain & Pre PT Stop: 10/23/20 17:07 Last Admin: 10/11/20 05:58 Dose: 10 mg Documented by: Pneumococcal Polyvalent Vaccine (Do Not Administer Pneumococcal Vaccine) 1 ea N/A PRN PRN PRN Reason: Notification Stop: 11/08/20 17:07 Polyethylene Glycol (Polyethylene (Miralax) 17 Gm Pack) 17 gm PO Q6 [facility] Stop: 11/09/20 05:59 Last Admin: 10/11/20 05:47 Dose: 17 gm Documented by: Rosuvastatin Calcium (Rosuvastatin Calcium 20 Mg Tab) 40 mg PO QAM [facility] Stop: 11/09/20 08:59 Last Admin: 10/11/20 09:12 Dose: 40 mg Documented by: Senna/Docusate Sodium (Docusate Sodium/Senna 50/8.6mg Tab) 2 tab PO HS [facility] Stop: 11/08/20 20:59 Last Admin: 10/10/20 20:43 Dose: 2 tab Documented by: Sodium Biphosphate/Sodium Phosphate (Sod Phosphate/Sod Biphosphate Enema 132 Ml Btl) 132 ml [place] ONE PRN PRN Reason: Constipation Stop: 11/08/20 17:07 Tamsulosin HCl (Tamsulosin Hcl 0.4 Mg Cap) 0.4 mg PO [facility] Stop: 11/08/20 20:59 Last Admin: 10/10/20 19:20 Dose: 0.4 mg Documented by: Tramadol HCl (Tramadol Hcl 50 Mg Tablet) 50 - 100 mg PO Q4H PRN PRN Reason: Moderate-Severe pain & Pre PT Stop: 11/08/20 17:07 Trazodone HCl (Trazodone Hcl 50 Mg Tab) 50 mg PO HS [facility] Stop: 11/09/20 20:59 Last Admin: 10/10/20 21:22 Dose: 50 mg Documented by:
--- NOTE | 2020-10-11 13:50 | XRay Report ---
XR knee LT 3V CLINICAL HISTORY: knee pain s/p fall COMPARISON: None. DISCUSSION: No definite acute dislocated fractures are seen. Questionable ossification is seen within soft tissue adjacent to the medial femoral condyle and might related to degenerative process. Also there is narr owing of the medial and lateral aspect of the knee joint with osteophytes and meniscal calcifications . Heavy vascular calcifications and diffuse soft tissue edema is seen. Suprapatellar effusion is demonstrated. IMPRESSION: No definite acute dislocated fractures are seen as detailed above. Questionable ossification at the m edial femoral condyle. Please correlate this findings with point tenderness. ACT 112: Negative or not required by law. The above report was generated using voice recognition software. It may contain grammatical, syntax o r spelling errors. Electronically signed by: Flori Martinez DO 10/11/2020 1:49 PM
[2020-10-11] MEDS: DOCUSATE SODIUM/SENNA 50/8.6MG TAB PO SCH (21:09)
[2020-10-11] MEDS: INSULIN GLARGINE SOLOSTAR 100 UNITS/ML 3 ML PEN SC SCH (21:10)
[2020-10-11] MEDS: traZODone HCL 50 MG TAB PO SCH (21:10)
[2020-10-11] MEDS: TAMSULOSIN HCL 0.4 MG CAP PO SCH (21:10)
[2020-10-12 05:29] LABS: Hematocrit (blood only) 28.9 % (42-52); Hemoglobin 9.5 g/dL (14.0-18.0); Mean Corpuscular Hemoglobin 29.2 pg (25-34); Mean Corpuscular Hgb Conc 32.9 g/dL (32-36); Mean Corpuscular Volume 88.9 fL (80-100); Platelet Count 237 K/uL (130-400); RDW Coefficient of Variation 13.1 % (11.5-14.5); RDW Standard Deviation 42.9 fL (36.4-46.3); Red Blood Count 3.25 M/uL (4.7-6.1); White Blood Count 10.71 K/uL (4.8-10.8)
[2020-10-12] MEDS: POLYETHYLENE (MIRALAX) 17 GM PACK PO SCH (05:56)
[2020-10-12 05:58] LABS: BUN Creatinine Ratio 26.3 (10-20); Calcium 9.5 mg/dl (8.5-10.1); Creatinine Clr Calc Pharmacy 60.6 ml/min; Est GFR (African American) 69.8 ml/min; Est GFR (Non-African American) 60.2 ml/min; Magnesium 2.5 mg/dl (1.8-2.4); Potassium 4.7 mmol/L (3.5-5.1)
[2020-10-12] MEDS: oxyCODONE HCL IR 5 MG TAB (IMMEDIATE RELEASE) PO PRN ×2 (07:46→17:34)
[2020-10-12] MEDS: ROSUVASTATIN CALCIUM 20 MG TAB PO SCH (07:48)
[2020-10-12] MEDS: NYSTATIN POWDER 15GM BTL EXT SCH ×2 (07:48→19:24)
[2020-10-12] MEDS: MULTIVITAMIN TAB PO SCH (07:49)
[2020-10-12] MEDS: dexAMETHasone 8 MG in SYRINGE 0 ML IV SCH (08:31)
[2020-10-12] MEDS: INSULIN GLARGINE SOLOSTAR 100 UNITS/ML 3 ML PEN SC SCH ×2 (08:34→21:08)
[2020-10-12] MEDS: INSULIN ASPART 100 UNITS/ML 3 ML PEN SC SCH ×4 (08:35→21:08)
--- NOTE | 2020-10-12 11:19 | Orthopedic Progress Note ---
Date of Service October 12, 2020 Assessment & Plan (1) Neurogenic claudication due to lumbar spinal stenosis: Plan: This time I will obtain an MRI of the left knee pending these results may consult one of my partners and orthopedics. We will continue to encourage activ ity as tolerated. Awaiting approval for rehab placement. Admission and Anticipated Discharge Date Admission Date: October 09, 2020 Subjective Patient's back pain is controlled still complaining of significant left knee pain particular with ambulation. Physical Exam Physical Exam: On exam is in the chair at the bedside. Skin strength testing lower extremities. Did not appreciate any significant swelling to the left knee. Is nontender to palpation of the joint line. Palpation Results & Data ([facility]) Vital Signs (Past 12 Hours) Vital Signs Temp Pulse Resp BP Pulse Ox 10/12/20 07:34 36.7 C 86 18 122/70 98
[2020-10-12] MEDS: CLOPIDOGREL BISULFATE 75 MG TAB PO SCH (13:56)
--- NOTE | 2020-10-12 14:39 | Hospitalist Progress Note ---
Date of Service October 12, 2020 Assessment & Plan (1) Neurogenic claudication due to lumbar spinal stenosis: (2) Post-operative state: Plan: s/p back surgery by Dr. De Los Santos POD #3 -pain/wound management per Ortho -VTE prophylaxis per Ortho, encourage early ambulation -incentive spirometry encouraged -CBC, BMP in am -PT/OT and activity restrictions per Ortho -noted daily dexamethasone. (3) Hypertension: Plan: BP low this morning-hold norvasc, atenolol. prinzide. Cont monitoring BP q4hrs as ordered. (4) Postoperative anemia: Plan: Normocytic anemia with baseline 12.5/37. Currently 9.5/29. He appears to be asymptomatic and no transfusion is indicated at this time. Per Ortho, OK to restart plavix. (5) PAD (peripheral artery disease): Plan: Cont medical management and ok to restart Plavix. (6) Diabetes mellitus, type 2: Plan: cont basal/ bolus insulin while hospitalized. Currently at goal. Noted the addition of daily dexamethasone. Cont with intensified insulin coverage to stay ahead of steroid-induced hyperglycemic effect. (7) BPH (benign prostatic hyperplasia): Plan: cont Flomax per home regimen. (8) DVT prophylaxis: Plan: SCD/ambulation Full Dispo-likely to rehab pending continued recovery. Thank you for this consultation. Swati Newby DO [facility] Hospitalist Admission and Anticipated Discharge Date Admission Date: October 09, 2020 Subjective 80 yo M s/p lumbar surgery back pain is much better today, however, left knee is bothering him he reports an MRI has been ordered to investigate this further. tolerating PO denies SOB, CP or other issues. BP low this morning, holding anti-hypertensives gael with ongoing narcotics. Recheck of BP at bedside was 120/70 Review of Systems Review of Systems: All systems were reviewed and negative except as indicated in HPI above. Physical Exam Physical Exam: CONSTITUTIONAL: WNWD, vitals as above, lying in bed, NAD EYES: normal conjunctivae, no scleral icterus ENT: external ear and nose normal, MMM RESPIRATORY: clear to auscultation bilaterally, no crackles, rales or wheezes, normal respiratory effort CARDIOVASCULAR: regular rate and rhythm, S1 and 2 heard without murmurs, gallops or rubs, no JVD, no peripheral edema GASTROINTESTINAL: soft, NTND, no guarding MUSCULOSKELETAL: strength 5/5 throughout, head is normocephalic and atraumatic, neck supple, normal palpation of chest wall without tenderness SKIN: warm and dry NEUROLOGIC: No facial palsy, no dysarthria. CN 2-12 grossly intact, no sensory deficit, normal cognition, normal speech, no tremor PSYCHIATRIC: alert cooperative and oriented to person, place and time. Results & Data Results & Data ([facility]) Vital Signs (Past 12 Hours) Vital Signs Temp Pulse Resp BP Pulse Ox 10/12/20 07:34 36.7 C 86 18 122/70 98 Laboratory Results Short CBC 10/12/20 Range/Units 04:22 WBC 10.71 (4.8-10.8) K/uL Hgb 9.5 L (14.0-18.0) g/dL Hct 28.9 L (42-52) % Plt Count 237 (130-400) K/uL BMP 10/12/20 04:22 Sodium 138 Potassium 4.7 Chloride 106 Carbon Dioxide 26 BUN 30 H Creatinine 1.15 Glucose 158 H Calcium 9.5 Medications Administered Current Inpatient Medications Acetaminophen (Acetaminophen 500 Mg Tab) 1,000 mg PO Q8H PRN PRN Reason: MILD Pain Scale 1,2,3 & Pre PT Stop: 11/08/20 17:07 Al Hydrox/Mg Hydrox/Simethicone (Aluminum/Magnesium Susp 30 Ml Udc) 30 ml PO Q6H PRN PRN Reason: Dyspepsia Stop: 11/08/20 17:07 Last Admin: 10/10/20 15:58 Dose: 30 ml Documented by: Amlodipine Besylate (Amlodipine Besylate 5 Mg Tab) 5 mg PO Q2D@0900 [facility] Stop: 11/08/20 17:07 Last Admin: 10/11/20 09:28 Dose: Not Given Documented by: Atenolol (Atenolol 50 Mg Tablet) 100 mg PO QAM [facility] Stop: 11/09/20 08:59 Last Admin: 10/11/20 09:15 Dose: Not Given Documented by: Bisacodyl (Bisacodyl 10 Mg Supp) 10 mg NJ DAILY PRN PRN Reason: Constipation Stop: 11/10/20 07:59 Clopidogrel Bisulfate (Clopidogrel Bisulfate 75 Mg Tab) 75 mg PO QAM [facility] Stop: 11/11/20 11:29 Last Admin: 10/12/20 13:56 Dose: 75 mg Documented by: Dextrose (Dextrose 50% 50 Ml Syringe) 25 - 50 ml IV UD PRN; Protocol PRN Reason: Hypoglycemia Protocol Stop: 11/08/20 20:14 Diphenhydramine HCl (Diphenhydramine Capsule 25 Mg Cap) 25 mg PO Q6H PRN PRN Reason: Allergic Rhinitis/Insomnia Stop: 11/08/20 17:07 Last Admin: 10/10/20 21:22 Dose: 25 mg Documented by: Famotidine (Famotidine 20 Mg Tab) 20 mg PO Q12H PRN PRN Reason: Dyspepsia Stop: 11/08/20 17:07 Last Admin: 10/10/20 16:39 Dose: 20 mg Documented by: Glucagon (Glucagon For Inj 1 Mg Vial) 1 mg IM UD PRN; Protocol PRN Reason: Hypoglycemia Protocol Stop: 11/08/20 20:14 Glucose (Glucose 40% Gel 15 Gm Tube) 15 - 30 gm PO UD PRN; Protocol PRN Reason: Hypoglycemia Protocol Stop: 11/08/20 20:14 Glucose (Glucose 10 Tabs/Tube) 4 - 8 tabs PO UD PRN; Protocol PRN Reason: Hypoglycemia Protocol Stop: 11/08/20 20:14 Lisinopril/HCTZ (Lisinopril/Hctz 20/12.5mg 1 Tab Tab) 1 tab PO QAM RIVAS Stop: 11/09/20 08:59 Last Admin: 10/11/20 09:12 Dose: 1 tab Documented by: Hydromorphone HCl (Hydromorphone Inj 0.5 Mg/0.5 Ml Syr) 0.5 mg IV Q3H PRN PRN Reason: MOD pain (scale 4-6) & Pre PT Stop: 10/23/20 17:07 Hydromorphone HCl (Hydromorphone Inj 1 Mg/Ml Syringe) 1 mg IV Q3H PRN PRN Reason: severe pain (scale 7-10) Stop: 10/23/20 17:07 Hydroxyzine HCl (Hydroxyzine Hcl 25 Mg Tab) 25 mg PO Q8H PRN PRN Reason: Anxiety Stop: 11/08/20 17:07 Promethazine HCl 12.5 mg/ (Sodium Chloride) 50.5 mls @ 202 mls/hr IV Q6H PRN PRN Reason: Nausea &/or Vomiting Stop: 11/08/20 17:07 Acetaminophen (Ofirmev) 1,000 mg in 100 mls @ 400 mls/hr IV Q8H PRN PRN Reason: Pain Rating 1-3 & Pre PT Stop: 10/12/20 17:07 Lorazepam (Ativan) 0.5 mg in 1 mls @ 1 mls/min IV Q8H PRN PRN Reason: Sedation/Anxiety Stop: 11/08/20 17:07 Influenza Virus Vaccine Quadrival (Do Not Administer Flu Vaccine) 1 ea N/A PRN PRN PRN Reason: Notification Stop: 11/08/20 17:07 Insulin Aspart (Insulin Aspart 100 Units/Ml 3 Ml Pen) 0 units SC ACHS [facility] Stop: 11/08/20 20:59 Last Admin: 10/12/20 13:52 Dose: 9 units Documented by: Insulin Glargine (Insulin Glargine Solostar 100 Units/Ml 3 Ml Pen) 20 units SC BID [facility]; Protocol Stop: 11/10/20 20:59 Last Admin: 10/12/20 08:34 Dose: 20 units Documented by: Lorazepam (Lorazepam 0.5 Mg Tab) 0.5 mg PO Q8H PRN PRN Reason: sedation/anxiety Stop: 11/08/20 17:07 Magnesium Hydroxide (Magnesium Hydroxide Susp 30 Ml Udc) 30 ml PO Q24H PRN PRN Reason: Constipation Stop: 11/08/20 17:07 Metoclopramide HCl (Metoclopramide Hcl Inj 5 Mg/Ml 2 Ml Vial) 10 mg IV Q6H PRN PRN Reason: Nausea &/or Vomiting Stop: 11/08/20 17:07 Miconazole Nitrate (Miconazole Nitrate Powder 43 Gm) 1 appln EXT PRN PRN PRN Reason: Affected Skin Folds Stop: 11/09/20 00:28 Last Admin: 10/12/20 07:48 Dose: 1 appln Documented by: Miscellaneous (Carbohydrates For Hypoglycemia ) 15 - 30 gm PO UD PRN PRN Reason: Hypoglycemia Treatment Stop: 11/08/20 20:14 Multivitamins (Multivitamin Tab) 1 tab PO QAM [facility] Stop: 11/09/20 08:59 Last Admin: 10/12/20 07:49 Dose: 1 tab Documented by: Naloxone HCl (Naloxone Hcl 0.4 Mg/1 Ml Vial/Carp) 0.1 mg IV Q5M PRN PRN Reason: Oversedation/respiratory dep Stop: 11/08/20 17:07 Nystatin (Nystatin Powder 15gm Btl) 1 appln EXT BID RIVAS Stop: 11/09/20 08:59 Last Admin: 10/12/20 07:48 Dose: 1 appln Documented by: Ondansetron HCl (Ondansetron Inj 2 Mg/Ml 2 Ml Vial) 4 mg IV Q6H PRN PRN Reason: Nausea &/or Vomiting Stop: 11/08/20 17:07 Ondansetron HCl (Ondansetron 4 Mg Od Tab) 4 mg PO Q6H PRN PRN Reason: Nausea Stop: 11/08/20 17:07 Oxycodone HCl (Oxycodone Hcl Ir 5 Mg Tab (Immediate Release)) 5 - 10 mg PO Q4H PRN PRN Reason: Pain & Pre PT Stop: 10/23/20 17:07 Last Admin: 10/12/20 07:46 Dose: 10 mg Documented by: Pneumococcal Polyvalent Vaccine (Do Not Administer Pneumococcal Vaccine) 1 ea N/A PRN PRN PRN Reason: Notification Stop: 11/08/20 17:07 Rosuvastatin Calcium (Rosuvastatin Calcium 20 Mg Tab) 40 mg PO QAM [facility] Stop: 11/09/20 08:59 Last Admin: 10/12/20 07:48 Dose: 40 mg Documented by: Senna/Docusate Sodium (Docusate Sodium/Senna 50/8.6mg Tab) 2 tab PO [facility] Stop: 11/08/20 20:59 Last Admin: 10/11/20 21:09 Dose: 2 tab Documented by: Sodium Biphosphate/Sodium Phosphate (Sod Phosphate/Sod Biphosphate Enema 132 Ml Btl) 132 ml NJ ONE PRN PRN Reason: Constipation Stop: 11/08/20 17:07 Tamsulosin HCl (Tamsulosin Hcl 0.4 Mg Cap) 0.4 mg PO [facility] Stop: 11/08/20 20:59 Last Admin: 10/11/20 21:10 Dose: 0.4 mg Documented by: Tramadol HCl (Tramadol Hcl 50 Mg Tablet) 50 - 100 mg PO Q4H PRN PRN Reason: Moderate-Severe pain & Pre PT Stop: 11/08/20 17:07 Trazodone HCl (Trazodone Hcl 50 Mg Tab) 50 mg PO [facility]AS Stop: 11/09/20 20:59 Last Admin: 10/11/20 21:10 Dose: 50 mg Documented by: Trazodone HCl (Trazodone Hcl 100 Mg Tab) 100 mg PO [facility] Stop: 11/11/20 20:59
--- NOTE | 2020-10-12 15:18 | Magnetic Resonance Report ---
MR knee LT wo con CLINICAL HISTORY: 80 years-old Male with knee pain. Acute left knee pain with recent fall. COMPARISON: Left knee radiographs 10/11/2020. TECHNIQUE: Multiplanar, multisequence MRI of the left knee was performed without intravenous contrast . FINDINGS: Motion degraded exam. MENISCI: Degeneration of the lateral meniscus with small chronic appearing horizontal undersurface te ar of the posterior horn, image 19 of series 11 with probable tear extension to the posterior menisca l root. No displaced fragment or parameniscal cyst. Complex tearing of the body, anterior junction, posterior junction and posterior horn and root medial meniscus with moderate surrounding edema. Large displaced meniscal fragment is best seen on sagittal image 7 of series 12 with extension to the inferior meniscal gutter. No parameniscal cyst. CRUCIATE LIGAMENTS: Mucoid degeneration of the intact anterior cruciate ligament. Chronic sprain of t he posterior cruciate ligament. COLLATERAL LIGAMENTS: The popliteus tendon, biceps femoris tendon, fibular collateral ligament and il iotibial band are intact. The superficial and deep components of the medial collateral ligament are intact. EXTENSOR MECHANISM: The quadriceps and patellar tendons are intact. The medial and lateral patellar r etinacula are intact. KNEE JOINT: Moderate-sized mildly complex joint effusion. Synovial frond-like proliferation is seen w ithin the suprapatellar distribution with joint space debris. Chondrocalcinosis. Mild lateral compart ment osteoarthritis with mostly low-grade chondromalacia. Moderate osteoarthritis of the medial zahraa rtment with mostly intermediate grade chondromalacia. Moderate osteoarthritis of the patellofemoral j oint with areas of high-grade chondromalacia noted involving the patellar apex and inferior medial tr ochlear groove. BONE MARROW: Moderate bone marrow edema involves the posterior aspect of the medial tibial plateau wi th ill-defined linear subcortical area of decreased T1 signal seen best on the coronal T1 images. SOFT TISSUES: Moderate subcutaneous and deep tissue edema of the knee. Small Rider's cyst. IMPRESSION: 1. Motion degraded exam. 2. Acute appearing insufficiency fracture involves the posterior medial tibial plateau with moderate reactive bone marrow edema. 3. Large complex acute appearing medial meniscal tear with displaced meniscal fragment as above. 4. 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 5. 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 ACT 112: Negative or not required by law. The above report was generated using voice recognition software. It may contain grammatical, syntax o r spelling errors. Dictated: 10/12/2020 1:53 PM Transcribed: 10/12/2020 2:19 PM Genoveva [id number] [email or web address] Electronically signed by: Karan Burrell M.D. 10/12/2020 3:17 PM
[2020-10-12] MEDS: DOCUSATE SODIUM/SENNA 50/8.6MG TAB PO SCH (19:23)
[2020-10-12] MEDS: TAMSULOSIN HCL 0.4 MG CAP PO SCH (19:23)
[2020-10-12] MEDS ORDERED: traZODone HCL 100 MG TAB PO SCH (21:00)
[2020-10-12] MEDS: traZODone HCL 50 MG TAB PO SCH (21:07)
[2020-10-13 07:25] VITALS: BP 118/67; PULSE 99; TEMP 98.1; O2SAT 95
[2020-10-13] MEDS: INSULIN GLARGINE SOLOSTAR 100 UNITS/ML 3 ML PEN SC SCH (09:11)
[2020-10-13] MEDS: NYSTATIN POWDER 15GM BTL EXT SCH (09:17)
[2020-10-13] MEDS: ROSUVASTATIN CALCIUM 20 MG TAB PO SCH (09:17)
[2020-10-13] MEDS: CLOPIDOGREL BISULFATE 75 MG TAB PO SCH (09:17)
[2020-10-13] MEDS: MULTIVITAMIN TAB PO SCH (09:17)
[2020-10-13] MEDS: oxyCODONE HCL IR 5 MG TAB (IMMEDIATE RELEASE) PO PRN (09:22)
--- NOTE | 2020-10-13 10:08 | Consultation Report ---
DATE OF CONSULT: 10/13/2020. HISTORY OF PRESENT ILLNESS: The patient is a 80-year-old male being seen for complaints of left knee pain after having had a fall and hyperflexed his knee. He is currently hospitalized after having amador d a revision spinal decompression and fusion surgery on 10/09/2020. He relates his left knee pain to be much less today than it was yesterday. He does have an exam consistent with a knee that is stable ligamentously. He has some small to moderate effusion, medial joint line pain and tenderness. His MRI scan reveals an insufficiency bone marrow changes involving the medial tibial plateau as well as a complex tear of the posterior horn of the medial meniscus. He relates prior to this fall, he did n ot have any particular knee pain or injuries. He relates he is walking much better today than he did yesterday. Discussed the situation with him. I think he would be a good candidate for viscosupplem entation. We will follow up with him as an outpatient for viscosupplementation pending his continued progressive ambulation here over the next day or so, we could use an knee immobilizer to help assist him in the meantime. Due to the nature of the insufficiency fracture, I would hold off on any type of corticosteroid injection at this time. We will follow him as an outpatient. Job ID: [id number]
[2020-10-13] MEDS: INSULIN ASPART 100 UNITS/ML 3 ML PEN SC SCH (10:16)
--- NOTE | 2020-10-13 10:23 | Discharge Summary ---
Date of Service October 13, 2020 Admission HPI Per Admitting Provider This is a 80-year-old male presents with chronic persistent back and leg pain after failing course of nonoperative care is here for surgical invention. Principal Diagnosis Lumbar spinal stenosis with neurogenic claudication Discharge Data Allergies Allergy/AdvReac Type Severity Reaction Status Date / Time cephalexin [From Keflex] Allergy Mild burning in Verified 10/09/20 09:43 hand Consultations 10/09/20 17:08 Consult Hospitalist Routine Procedures Performed Operation Date: 10/09/20 10:35 Actual Procedures p L2-S1 Revision Decompression/Fusion Spinal Cord Monitoring(Not Applicable) - Yobani De Los Santos DO Ordered Studies 10/09/20 10:35 FL lumbar spine 2-3V Routine 10/12/20 11:16 MR knee LT wo con Routine Hospital Course (1) Neurogenic claudication due to lumbar spinal stenosis: Patient went lumbar decompression fusion tolerates well second orthopedic for possibly. Postop day 1 he was up and ambulating progressed to postop day #2 and 3 did have him worked up for his left knee pain. Strength is intact. MEHDI drain decreasing probably. Subsequently discharged home. Discharge orders instructions from the chart for further review. Total Time Total Time Spent Total Time Spent (In Minutes): 20 minutes Discharge Plan Discharge Items Patient Disposition: Home - Self-Care Reason For Visit: Spinal Stenosis, Lumbar Region with out Neurogenic Discharge Diagnosis: Lumbar spinal stenosis with neurogenic claudication Activity: As commented below Non-emergency contact: Primary Care Provider Call non-emergency contact if: you have any medication questions Follow-up/Referrals: Florencio Easton MD [Primary Care Provider] - Diet: Regular Addtl Attending Provider Instructions: ACTIVITY RECOMMENDATIONS: SELF CARE INSTRUCTIONS AFTER THORACIC/LUMBAR FUSIONS 1. You may walk to your tolerance. It is good exercise for your legs and back. Expect some back and intermittent leg aches and pains. 2. You may perform "counter-top" level activities (make a sandwich, thad with a project, etc.). 3. No bending or lifting of more than 10 pounds or back twisting of any nature (roll like a log when turning in bed). 4. You may ride in a car for 20-30 minutes at a time. No driving until after your first visit with your doctor. 5. Frequent changes of position and restricting sitting to 30 minutes at a time will help limit the amount of back spasms and stiffness you may experience. 6. You may discontinue the use of ambulatory aids (cane, crutches, etc.) once your strength and confidence allow. 7. You may canning machine operator the shower and let water strike your incision when you arrive home at least once daily. Do not take a tub bath, sit in a hot tub or go into a swimming pool until after your first recheck in the office. SPECIAL CARE INSTRUCTIONS: VERY IMPORTANT TO READ AND REVIEW A. Your surgical incision has been closed with a cosmetic suture under the skin that will dissolve in about 6 weeks. In 14 days, you can use a pair of clean scissors and cut the suture that is left outside of the skin at the ends of your incision. 1. The small skin tapes can be removed 7 days after surgery if they have not fallen off by that point. 2. You may keep the wound open to air as much as possible to promote healing after post-op day number 5 unless told otherwise by your doctor. 3. If you think the wound looks like it is becoming infected (redness or worsening drainage) and/or you are experiencing fever, chill or worsening back pain and muscle spasms, contact the office so that we may evaluate you as soon as possible. B. Complications are uncommon, but please contact us if you have any signs or symptoms of: 1. wound infection (fever higher than 102.5 degrees F, redness, separation of wound, drainage, or increasing pain from the incision) 2. blood clots in legs (pain, swelling, redness and warmth in legs) 3. urinary tract infection (fever higher than 102.5 degrees F, burning upon urination or increased frequency of urination) 4. nerve problems (inability to walk on your toes or heels, numbness, loss of bowel or bladder control) 5. any other symptoms that concern you C. Please call the office at if you have any concerns or questions about your operation or recovery. D. No smoking! Smoking drastically decreases the chance of a solid fusion. E. Do not take any anti-inflammatory medications (Indocin, Advil, Motrin, Aspirin, Naprosyn, etc.) as these may inhibit the chance of a solid fusion. Tylenol is okay to take for pain. MANAGING PAIN AFTER SPINAL SURGERY 1. Narcotic medication is intended for short-term use and will be provided for surgical pain. Surgical pain usually lasts for a period of 4-6 weeks. Narcotic medication includes Percocet, Vicodin, Darvocet, Tylenol #3 or Lortab. 2. Longer-term pain is more appropriately treated with non-narcotic medication such as Tylenol ES. 3. Muscle spasm is not appropriately treated with narcotics. Muscle relaxers such as Soma, Flexeril or Skelaxin can be used along with Tylenol ES. 4. Remember that we all live with some "aches and pains". This is not unusual or uncommon after an injury or as we get older. a. Back pain is expected and may include muscle spasms for 4 to 6 weeks after surgery. The pain should gradually improve. If the pain worsens for no apparent reason, please contact the office. b. Intermittent leg pain may also be experienced and should not be concerned about unless it worsens for no apparent reason. If so, please contact the office. 5. We will provide appropriate medication within the normal guidelines of their prescribed use. We will also be very cautious and aware of potential abuse and extended duration of patients' medication needs. a. Pain medications are for your comfort and to assist with sleep and rest so that the tissue can heal. They are not provided in order to return to normal activity and should not be used through the day. To do so or worsening pain at night can result from ongoing tissue damage and development of tolerance to the prescribed medicine. 6. Please allow 2-3 days to process refills. Prescriptions will not be mailed but must be picked up at the office. FOLLOW UP VISIT: Keep your scheduled follow-up appointment. Any questions, please call the office at . Pending Studies at Discharge: No Stand-Alone Forms: My [employer], Smoking Cessation Medications and DC Order Prescriptions: New oxycodone 5 mg tablet 5 mg PO Q6H PRN (Reason: pain, severe) Qty: 30 RF: 0 Continued metformin 500 mg Tablet 500 mg PO QAM RF: 0 lisinopril-hydrochlorothiazide 20-12.5 mg Tablet 1 tab PO QAM RF: 0 atenolol [Tenormin] 100 mg Tablet 100 mg PO QAM RF: 0 hydrocodone-acetaminophen 5-325 mg Tablet 1 tab PO QID PRN (Reason: Pain) RF: 0 clopidogrel [Plavix] 75 mg Tablet 75 mg PO QAM RF: 0 amlodipine [Norvasc] 5 mg Tablet 5 mg PO Q2D RF: 0 tamsulosin [Flomax] 0.4 mg Capsule 0.4 mg PO HS RF: 0 multivitamin Capsule 1 cap PO QAM RF: 0 rosuvastatin [Crestor] 40 mg Tablet 40 mg PO QAM RF: 0 Toujeo SoloStar U-300 Insulin 300 unit/mL (1.5 mL) Insulin Pen 50 unit SUBCUT QAM RF: 0 trazodone 50 mg tablet 50 - 100 mg PO HS PRN (Reason: insonmia) RF: 0 Discharge Orders: Discharge Order (Routine); Ordered 10/13/20 Ordered By: Yobani De Los Santos Admission Data Admit Date/Time: 10/09/20 15:28 Attending Provider: Yobani De Los Santos Admit Provider: Yobani De Los Santos Primary Care Provider: Florencio Easton Other Providers: Swati Newby
--- NOTE | 2020-10-13 10:58 | Hospitalist Progress Note ---
Date of Service October 13, 2020 Assessment & Plan (1) Neurogenic claudication due to lumbar spinal stenosis: (2) Post-operative state: Plan: s/p back surgery by Dr. De Los Santos POD #4 -pain/wound management per Ortho -VTE prophylaxis per Ortho, encourage early ambulation -incentive spirometry encouraged -CBC, BMP in am -PT/OT and activity restrictions per Ortho -noted daily dexamethasone. (3) Hypertension: Plan: OK to resume all home antihypertensives on discharge (4) Postoperative anemia: Plan: Stable, no issues after restarting Plavix. PCP to consider H/H in one week. (5) Left knee pain: Plan: Recent knee trauma in the preoperative setting. Patient has persistent pain. MRI during this admission reveals acute appearing insufficiency fracture involves the posterior medial tibial plateau with moderate reactive bone marrow edema with a large complex acute appearing medial meniscal tear with displaced meniscal fragment as above. There is a moderate-sized joint effusion with findings suggestive of lipoma arborescens. There is also tricompartmental o steoarthritis, moderate within the medial and patellofemoral compartments. Rehab was recommended, however, the patient feels that he is better off at home. Management per orthopedics. (6) PAD (peripheral artery disease): Plan: Cont medical management. (7) Diabetes mellitus, type 2: Plan: cont basal/ bolus insulin while hospitalized. Currently at goal. Missed coverage this am, recheck and cover prior to discharge then resume home regimen without changes. (8) BPH (benign prostatic hyperplasia): Plan: cont Flomax per home regimen. (9) DVT prophylaxis: Plan: SCD/ambulation Full Dispo-rehab recommended, however, patient wants to go home adamantly. Recommend follow-up with PCP in 1 week with an echocardiogram to evaluate new murmur heard on auscultation. I have communicated this to PCP office by phone and to Dr. De Los Santos. I have posted this recommendation on the discharge instructions. Thank you for this consultation. Swati Newby DO [facility] and Anticipated Discharge Date Admission Date: October 09, 2020 Subjective 80 yo M s/p lumbar surgery back pain improved L knee pain persistent and findings of pathology on recent MRI pt is adamantly declining rehab despite the recommendation for this. he is very distracted by telling me he wants to go home and this overtakes our conversation. I assured him that he can Review of Systems Review of Systems: All systems were reviewed and negative except as indicated in HPI above. Physical Exam Physical Exam: CONSTITUTIONAL: WNWD, vitals as above, sittin gin the bedside chair, NAD EYES: normal conjunctivae, no scleral icterus ENT: external ear and nose normal, MMM RESPIRATORY: clear to auscultation bilaterally, no crackles, rales or wheezes, normal respiratory effort CARDIOVASCULAR: regular rate and rhythm, 3/6 CLEO heard, no gallops or rubs, no JVD, no peripheral edema GASTROINTESTINAL: soft, NTND, no guarding MUSCULOSKELETAL: moving all extremities equally. SKIN: warm and dry NEUROLOGIC: No facial palsy, no dysarthria. CN 2-12 grossly intact, no sensory deficit, normal cognition, normal speech, no tremor PSYCHIATRIC: alert cooperative and oriented to person, place and time. Results & Data Results & Data ([facility]) Vital Signs (Past 12 Hours) Vital Signs Temp Pulse Resp BP Pulse Ox 10/13/20 07:25 36.7 C 99 H 18 118/67 95 Medications Administered Current Inpatient Medications Acetaminophen (Acetaminophen 500 Mg Tab) 1,000 mg PO Q8H PRN PRN Reason: MILD Pain Scale 1,2,3 & Pre PT Stop: 11/08/20 17:07 Last Admin: 10/13/20 07:13 Dose: 1,000 mg Documented by: Al Hydrox/Mg Hydrox/Simethicone (Aluminum/Magnesium Susp 30 Ml Udc) 30 ml PO Q6H PRN PRN Reason: Dyspepsia Stop: 11/08/20 17:07 Last Admin: 10/10/20 15:58 Dose: 30 ml Documented by: Amlodipine Besylate (Amlodipine Besylate 5 Mg Tab) 5 mg PO Q2D@0900 [facility] Stop: 11/08/20 17:07 Last Admin: 10/11/20 09:28 Dose: Not Given Documented by: Atenolol (Atenolol 50 Mg Tablet) 100 mg PO QAM [facility] Stop: 11/09/20 08:59 Last Admin: 10/11/20 09:15 Dose: Not Given Documented by: Bisacodyl (Bisacodyl 10 Mg Supp) 10 mg NV DAILY PRN PRN Reason: Constipation Stop: 11/10/20 07:59 Clopidogrel Bisulfate (Clopidogrel Bisulfate 75 Mg Tab) 75 mg PO QAM [facility] Stop: 11/11/20 11:29 Last Admin: 10/13/20 09:17 Dose: 75 mg Documented by: Dextrose (Dextrose 50% 50 Ml Syringe) 25 - 50 ml IV UD PRN; Protocol PRN Reason: Hypoglycemia Protocol Stop: 11/08/20 20:14 Diphenhydramine HCl (Diphenhydramine Capsule 25 Mg Cap) 25 mg PO Q6H PRN PRN Reason: Allergic Rhinitis/Insomnia Stop: 11/08/20 17:07 Last Admin: 10/10/20 21:22 Dose: 25 mg Documented by: Famotidine (Famotidine 20 Mg Tab) 20 mg PO Q12H PRN PRN Reason: Dyspepsia Stop: 11/08/20 17:07 Last Admin: 10/10/20 16:39 Dose: 20 mg Documented by: Glucagon (Glucagon For Inj 1 Mg Vial) 1 mg IM UD PRN; Protocol PRN Reason: Hypoglycemia Protocol Stop: 11/08/20 20:14 Glucose (Glucose 40% Gel 15 Gm Tube) 15 - 30 gm PO UD PRN; Protocol PRN Reason: Hypoglycemia Protocol Stop: 11/08/20 20:14 Glucose (Glucose 10 Tabs/Tube) 4 - 8 tabs PO UD PRN; Protocol PRN Reason: Hypoglycemia Protocol Stop: 11/08/20 20:14 Lisinopril/HCTZ (Lisinopril/Hctz 20/12.5mg 1 Tab Tab) 1 tab PO [facility] Stop: 11/09/20 08:59 Last Admin: 10/11/20 09:12 Dose: 1 tab Documented by: Hydromorphone HCl (Hydromorphone Inj 0.5 Mg/0.5 Ml Syr) 0.5 mg IV Q3H PRN PRN Reason: MOD pain (scale 4-6) & Pre PT Stop: 10/23/20 17:07 Hydromorphone HCl (Hydromorphone Inj 1 Mg/Ml Syringe) 1 mg IV Q3H PRN PRN Reason: severe pain (scale 7-10) Stop: 10/23/20 17:07 Hydroxyzine HCl (Hydroxyzine Hcl 25 Mg Tab) 25 mg PO Q8H PRN PRN Reason: Anxiety Stop: 11/08/20 17:07 Promethazine HCl 12.5 mg/ (Sodium Chloride) 50.5 mls @ 202 mls/hr IV Q6H PRN PRN Reason: Nausea &/or Vomiting Stop: 11/08/20 17:07 Lorazepam (Ativan) 0.5 mg in 1 mls @ 1 mls/min IV Q8H PRN PRN Reason: Sedation/Anxiety Stop: 11/08/20 17:07 Influenza Virus Vaccine Quadrival (Do Not Administer Flu Vaccine) 1 ea N/A PRN PRN PRN Reason: Notification Stop: 11/08/20 17:07 Insulin Aspart (Insulin Aspart 100 Units/Ml 3 Ml Pen) 0 units SC ACHS [facility]AS Stop: 11/08/20 20:59 Last Admin: 10/13/20 10:16 Dose: Not Given Documented by: Insulin Glargine (Insulin Glargine Solostar 100 Units/Ml 3 Ml Pen) 20 units SC BID RIVAS; Protocol Stop: 11/10/20 20:59 Last Admin: 10/13/20 09:11 Dose: 20 units Documented by: Lorazepam (Lorazepam 0.5 Mg Tab) 0.5 mg PO Q8H PRN PRN Reason: sedation/anxiety Stop: 11/08/20 17:07 Magnesium Hydroxide (Magnesium Hydroxide Susp 30 Ml Udc) 30 ml PO Q24H PRN PRN Reason: Constipation Stop: 11/08/20 17:07 Metoclopramide HCl (Metoclopramide Hcl Inj 5 Mg/Ml 2 Ml Vial) 10 mg IV Q6H PRN PRN Reason: Nausea &/or Vomiting Stop: 11/08/20 17:07 Miconazole Nitrate (Miconazole Nitrate Powder 43 Gm) 1 appln EXT PRN PRN PRN Reason: Affected Skin Folds Stop: 11/09/20 00:28 Last Admin: 10/12/20 07:48 Dose: 1 appln Documented by: Miscellaneous (Carbohydrates For Hypoglycemia ) 15 - 30 gm PO UD PRN PRN Reason: Hypoglycemia Treatment Stop: 11/08/20 20:14 Multivitamins (Multivitamin Tab) 1 tab PO QAM [facility] Stop: 11/09/20 08:59 Last Admin: 10/13/20 09:17 Dose: 1 tab Documented by: Naloxone HCl (Naloxone Hcl 0.4 Mg/1 Ml Vial/Carp) 0.1 mg IV Q5M PRN PRN Reason: Oversedation/respiratory dep Stop: 11/08/20 17:07 Nystatin (Nystatin Powder 15gm Btl) 1 appln EXT BID [facility]AS Stop: 11/09/20 08:59 Last Admin: 10/13/20 09:17 Dose: 1 appln Documented by: Ondansetron HCl (Ondansetron Inj 2 Mg/Ml 2 Ml Vial) 4 mg IV Q6H PRN PRN Reason: Nausea &/or Vomiting Stop: 11/08/20 17:07 Ondansetron HCl (Ondansetron 4 Mg Od Tab) 4 mg PO Q6H PRN PRN Reason: Nausea Stop: 11/08/20 17:07 Oxycodone HCl (Oxycodone Hcl Ir 5 Mg Tab (Immediate Release)) 5 - 10 mg PO Q4H PRN PRN Reason: Pain & Pre PT Stop: 10/23/20 17:07 Last Admin: 10/13/20 09:22 Dose: 10 mg Documented by: Pneumococcal Polyvalent Vaccine (Do Not Administer Pneumococcal Vaccine) 1 ea N/A PRN PRN PRN Reason: Notification Stop: 11/08/20 17:07 Rosuvastatin Calcium (Rosuvastatin Calcium 20 Mg Tab) 40 mg PO QAM [facility] Stop: 11/09/20 08:59 Last Admin: 10/13/20 09:17 Dose: 40 mg Documented by: Senna/Docusate Sodium (Docusate Sodium/Senna 50/8.6mg Tab) 2 tab PO HS [facility] Stop: 11/08/20 20:59 Last Admin: 10/12/20 19:23 Dose: 2 tab Documented by: Sodium Biphosphate/Sodium Phosphate (Sod Phosphate/Sod Biphosphate Enema 132 Ml Btl) 132 ml NV ONE PRN PRN Reason: Constipation Stop: 11/08/20 17:07 Tamsulosin HCl (Tamsulosin Hcl 0.4 Mg Cap) 0.4 mg PO HS [facility] Stop: 11/08/20 20:59 Last Admin: 10/12/20 19:23 Dose: 0.4 mg Documented by: Tramadol HCl (Tramadol Hcl 50 Mg Tablet) 50 - 100 mg PO Q4H PRN PRN Reason: Moderate-Severe pain & Pre PT Stop: 11/08/20 17:07 Trazodone HCl (Trazodone Hcl 50 Mg Tab) 50 mg PO HS [facility] Stop: 11/09/20 20:59 Last Admin: 10/12/20 21:07 Dose: 50 mg Documented by: Trazodone HCl (Trazodone Hcl 100 Mg Tab) 100 mg PO [facility] Stop: 11/11/20 20:59 Last Admin: 10/12/20 21:07 Dose: 100 mg Documented by:
== END 2020-10-13 14:23 | disposition home health service (06) | DRG 455 ==
LOC: ASU 08:57 → 3E 15:28